=== PATIENT | female | born 2000 | race Caucasian/White ===

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

== ENCOUNTER → 2022-12-28 | Outpatient (CLI) | payer MEDICAID, SELFPAY ==
--- NOTE | 2022-12-28 15:18 | RAD_ITS ---
STUDY: X-RAY EXAMINATION: SCOLIOSIS SERIES REASON FOR EXAM: Female, 22 years old. Lumbar strain. Pain. TECHNIQUE: 6 view(s) of the thoracolumbar spine were obtained in the upright standing position. COMPARISON: None. FINDINGS: No thoracic scoliosis.. 12 degrees of dextroscoliosis of the upper lumbar spine measured at the T12-L2 interspace. Normal kyphosis of the thoracic spine. Normal thoracic vertebrae and endplates. Normal disc space heights of the thoracic spine. Normal lordosis of the lumbar spine. Normal lumbar vertebrae and endplates. Normal disc space heights of the lumbar spine. Normal soft tissues. RAD/Scoliosis 2 or 3 views IMPRESSION: Normal lumbar dextroscoliosis with no other abnormality. Electronically Signed: Jayjay Payne MD at 11:26 EDT ,
--- NOTE | 2022-12-28 15:30 | RAD_ITS ---
STUDY: X-RAY - LEFT KNEE REASON FOR EXAM: Female, 22 years old. Please drain. Pain. TECHNIQUE: 4 view(s) of the knee. COMPARISON: None. FINDINGS: Normal visualized distal femur. Normal visualized proximal tibia and fibula. Normal proximal tibiofibular articulation. Normal medial femorotibial compartment. Normal lateral femorotibial compartment. Slight lateral tilt and subluxation of the patella with mild arthrosis of the lateral patellofemoral compartment. Normal soft tissues. RAD/Knee 4 or More Views IMPRESSION: Mild arthrosis of the lateral patellofemoral compartment. No other abnormality. Electronically Signed: Jayjay Payne MD at 11:23 EDT ,
== END | disposition home or self-care (01) ==
LOC: RAD 15:12
PROVIDERS: PCP Pediatrics; Referring Provider Chiropractor; Visit Provider Chiropractor
DX: S33.5XXA Sprain of ligaments of lumbar spine, initial encounter (principal); S83.92XA Sprain of unspecified site of left knee, initial encounter
CPT/HCPCS: 72082; 73564

== ENCOUNTER → 2023-06-24 | Outpatient (CLI) | payer MEDICAID, SELFPAY ==
--- OUTSIDE RECORDS SUMMARY | 2023-06-24 07:33 | XMS RPT_ITS | CCD ---
Author Name Unknown Address [address] [place] [address] [address] [place] [address] Organization [facility] Care Team Providers Care Cash Office Worker Name Role Phone Karey BYRNE, Renard Babin Primary Care Provider Donny BYRNE, Anthony Nunes Primary Care Provider EMEKA ALICIA Attending Unavailable Allergies Allergy Classification Reported Allergen(s) Allergy Type Date of Onset Reaction(s) Facility (14 sources) Seasonal allergy; Translations: [SEASONAL ALLERGIES] Allergy to substance 5 Other: See Comments [facility] (14 sources) Animal Dander; Translations: [ANIMAL DANDER] Drug Allergy 5 Other: See Comments [facility] Medications Completed/Discontinued Medications Medication Drug Class(es) Dates Sig (Normalized) Sig (Original) folic acid 1 mg oral tablet (13 sources) Start: 03-04-2012 take 1 tablet by mouth once daily folic acid 1 mg tablet Indications: Unspecified epilepsy without mention of intractable epilepsy (HCC) Take 1 tablet by mouth once daily. 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, unspecified] Onset: 04-21-2005 04-21-2005 Chronic Other congenital anomalies (14 sources) Epidermal nevus syndrome; Translations: [Other specified congenital malformation syndromes, not elsewhere classified] Onset: 03-02-2014 03-02-2014 Chronic Past or Other Problems Problem Classification Problem Date Documented Da te Episodic/Chronic Conditions associated with dizziness or vertigo (8 sources) Vertigo; Translations: [Dizziness and giddiness] Onset: 08-23-2011 Episodic Other acquired deformities (8 sources) Leg length inequality; Translations: [Unequal limb length (acquired), unspecified site] Onset: 04-24-2010 04-24-2010 Episodic Other acquired deformities (8 sources) Acquired deformity of ankle AND/OR foot; Translations: [Unspecified acquired deformity of unspecified lower leg] Onset: 12-25-2014 01-17-2015 Episodic Other and unspecified benign neoplasm (8 sources) Benign tumor of head and neck; Translations: [Other benign neoplasm of skin of scalp and neck] Onset: 11-01-2003 11-01-2003 Episodic Other connective tissue disease (8 sources) Swelling of limb; Translations: [Other specified soft tissue disorders] Onset: 12-25-2014 12-25-2014 Episodic Results Test Name Value Interpretation Reference Range Facil ity Vital Signs Date Time Vital Sign Value Performing Clinician Faci lity 08-12-2022 17:52-0400 Diastolic blood pressure 76 mm[Hg] Emeka Older PERCHER.CAB SUPERVISOR Work Phone: [facility] 08-12-2022 17:52-0400 Systolic blood pressure 110 mm[Hg] Emeka Older PERCHER.CAB SUPERVISOR Work Phone: [facility] 08-12-2022 17:34-0400 Body height 151 cm Emeka Older PERCHER.CAB SUPERVISOR Work Phone: [facility] 08-12-2022 17:34-0400 Body weight 55.34 kg Emeka Older PERCHER.CAB SUPERVISOR Work Phone: [facility] 08-12-2022 17:34-0400 Heart rate 85 /min Emeka Older PERCHER.CAB SUPERVISOR Work Phone: [facility] 08-12-2022 17:34-0400 Respiratory rate 14 /min Emeka Older PERCHER.CAB SUPERVISOR Work Phone: [facility] Encounters Encounter Date Encounter Type Care Provider Facility Start: 03-30-2023 Refill Rene Baker MD Work Phone: Neurology Procedures Date Procedure Procedure Detail Performing Clinician Start: 12-15-2018 Adult depression screening assessment Rene Baker MD Work Phone: Plan of Treatment Date Care Activity Detail Author Start: 12-02-2023 Urine microalbumin profile [facility] Start: 08-13-2023 CHLAMYDIA SCREENING () CH LAMYDIA SCREENING () [facility] Immunizations Immunization Date Immunization Notes Care Provider Fa zacariasty 12-14-2017 meningococcal polysaccharide (groups A, C, Y and W-135) diphtheria toxoid conjugate vaccine (MCV4P) Rene Baker MD Work Phone: [facility] 09-24-2015 meningococcal polysaccharide (groups A, C, Y and W-135) diphtheria toxoid conjugate vaccine (MCV4P) Rene Baker MD Work Phone: [facility] 11-28-2014 influenza virus vacc ine, unspecified formulation Rene Baker MD Work Phone: [facility] 11-28-2014 influenza, seasonal, injectable, preservative free Emeka Older PERCHER.CAB SUPERVISOR Work Phone: [facility] 02-05-2014 influenza virus vacc ine, live, attenuated, for intranasal use Emeka Older PERCHER.CAB SUPERVISOR Work Phone: [facility] 02-05-2014 influenza, live, intranasal, quadrivalent Rene Baker MD Work Phone: [facility] 12-01-2013 tetanus toxoid, redu caridad diphtheria toxoid, and acellular pertussis vaccine, adsorbed Rene Baker MD Work Phone: [facility] 04-07-2013 influenza virus vacc ine, unspecified formulation Rene Baker MD Work Phone: [facility] 11-29-2006 diphtheria, tetanus toxoids and acellular pertussis vaccine Rene Baker MD Work Phone: [facility] 11-29-2006 diphtheria, tetanus toxoids and pertussis vaccine Emeka Older PERCHER.CAB SUPERVISOR Work Phone: [facility] 11-29-2006 measles, mumps and rubella virus vaccine Rene Baker MD Work Phone: [facility] 11-29-2006 measles, mumps, rube lla, and varicella virus vaccine Rene Baker MD Work Phone: [facility] 11-29-2006 poliovirus vaccine, inactivated Rene Baker MD Work Phone: [facility] 10-28-2006 varicella virus vaccine Rene Baker MD Work Phone: [facility] 01-04-2002 diphtheria, tetanus toxoids and acellular pertussis vaccine Rene Baker MD Work Phone: [facility] 01-04-2002 diphtheria, tetanus toxoids and acellular pertussis vaccine, unspecified formulation Emeka Older PERCHER.CAB SUPERVISOR Work Phone: [facility] 01-04-2002 haemophilus influenz ae type b vaccine, conjugate unspecified formulation Emeka Older PERCHER.CAB SUPERVISOR Work Phone: [facility] 01-04-2002 haemophilus influenz ae type b vaccine, HbOC conjugate Rene Baker MD Work Phone: [facility] 10-28-2001 measles, mumps and rubella virus vaccine Rene Baker MD Work Phone: [facility] 10-28-2001 varicella virus vaccine Emeka Older PERCHER.CAB SUPERVISOR Work Phone: [facility] 06-23-2001 diphtheria, tetanus toxoids and acellular pertussis vaccine Rene Baker MD Work Phone: [facility] 06-23-2001 diphtheria, tetanus toxoids and acellular pertussis vaccine, unspecified formulation Emeka Older PERCHER.CAB SUPERVISOR Work Phone: [facility] 06-23-2001 haemophilus influenz ae type b vaccine, conjugate unspecified formulation Emeka Older PERCHER.CAB SUPERVISOR Work Phone: [facility] 06-23-2001 haemophilus influenz ae type b vaccine, HbOC conjugate Rene Baker MD Work Phone: [facility] 04-14-2001 diphtheria, tetanus toxoids and acellular pertussis vaccine Rene Baker MD Work Phone: [facility] 04-14-2001 diphtheria, tetanus toxoids and acellular pertussis vaccine, unspecified formulation Emeka Older PERCHER.CAB SUPERVISOR Work Phone: [facility] 04-14-2001 haemophilus influenz ae type b conjugate and Hepatitis B vaccine Emeka Older PERCHER.CAB SUPERVISOR Work Phone: [facility] 04-14-2001 haemophilus influenz ae type b vaccine, HbOC conjugate Rene Baker MD Work Phone: [facility] 04-14-2001 hepatitis B vaccine, pediatric or pediatric/adolescent dosage Rene Baker MD Work Phone: [facility] 04-14-2001 poliovirus vaccine, inactivated Rene Baker MD Work Phone: [facility] 02-02-2001 diphtheria, tetanus toxoids and acellular pertussis vaccine Rene Baker MD Work Phone: [facility] 02-02-2001 diphtheria, tetanus toxoids and acellular pertussis vaccine, unspecified formulation Emeka Older PERCHER.CAB SUPERVISOR Work Phone: [facility] 02-02-2001 poliovirus vaccine, inactivated Rene Baker MD Work Phone: [facility] 01-23-2001 diphtheria, tetanus toxoids and acellular pertussis vaccine Rene Baker MD Work Phone: [facility] 01-23-2001 diphtheria, tetanus toxoids and pertussis vaccine Emeka Older PERCHER.CAB SUPERVISOR Work Phone: [facility] 01-23-2001 poliovirus vaccine, inactivated Rene Baker MD Work Phone: [facility] 2000 haemophilus influenz ae type b conjugate and Hepatitis B vaccine Emeka Older PERCHER.CAB SUPERVISOR Work Phone: [facility] 2000 haemophilus influenz ae type b vaccine, HbOC conjugate Rene Baker MD Work Phone: [facility] 2000 hepatitis B vaccine, pediatric or pediatric/adolescent dosage Rene Baker MD Work Phone: [facility] 2000 poliovirus vaccine, inactivated Rene Baker MD Work Phone: [facility] 2000 hepatitis B vaccine, pediatric or pediatric/adolescent dosage Rene Baker MD Work Phone: [facility] Payers Date Payer Category Payer Medicaid [id number] 2020 Medicaid [facility] MEDICAID [facility] MEDICAID [id number] 2020-Present [phone] [address] [place] [address] Medicaid [id number] 2020 Medicaid [id number] Social History Date Type Detail Facility Start: 04-05-2018 End: 08-12-2022 Tobacco smoking status NHIS Never smoked tobacco [facility] Start: 03-19-2021 Alcohol intake Not Asked Ingrid alanis [facility] Start: 2000 Sex Assigned At Not on file C [facility] Start: 04-05-2018 End: 08-12-2022 Tobacco use and exposure Smokeless tobacco non-user [facility] Start: 08-12-2022 Alcohol intake Lifetime non-d diana (finding) [facility] Start: 08-12-2022 End: 12-15-2022 History of Social function [facility] Work Phone: Start: 08-12-2022 End: 12-15-2022 Tobacco use panel [facility] Work Phone: Adult Depression Screening Assessment 0 [facility] Work Phone: Clinical Notes 07-07-2007 to 03-30-2023 Telephone Encounter - Lucita Siu RN - 03/30/2023 11:57 AM ESTAddendum Note - Brianda Kimble - 03/30/2023 11:51 AM ESTTelephone Encounter - Brianda Kimble - 03/30/2023 11:49 AM EST Note Date & Type Note Facility 03-30-2023 Miscellaneous Notes Date of service: March 30, 2023 Lexus Flores is a 22 year old. Last seen by Dr. Baker on 11/19/20. Has upcoming appt with local adult neurologist on 06/22/23. Spoke with Ms. Flores who states that Lexus has an appt with local neurologist on 06/22/23 and that date is the soonest she could be seen. Advised that one 90-day fill can be given to bridge until appt. She verbalized understanding. Now requesting oxcarbazepine refill Level of oxcarbazepine on 11/28/20 was 20.1 -Prescription appropriate, please file and document electronically. Thank you. -Routed to Dr. Maribell Siu RN Addended by: BRIANDA KIMBLE on: 03/30/2023 11:51 AM Modules accepted: Orders Prescription Refill: Requested by: pharmacy Please E-Scribe Caller Contact Number: [facility] Number: [phone] Generic/ brand: 30 or 90 day supply requested: 90 Last appointment: 11/19/20 Next Appointment: none; sent to schedulers Patient of Dr. Baker documented in this encounter [facility] 01-28-2023 Miscellaneous Notes Bernice mother called back informed that pt will be transferring to [place] neurology and wont be making an appointment here. Refill for OXC done on 01/01/23. Called Lexus and Mrs. Flores to advise of need for appt, did not receive answer on either line, messages left, will await call-back. Refill refused. Lucita Siu RN Prescription Refill: Requested by: pharmacy Please E-Scribe Caller Contact Number: [facility] Number: [phone] Generic/ brand: Generic 30 or 90 day supply requested: 90 Last appointment: 11/19/20 Next Appointment: none Patient of Dr. Baker documented in this encounter [facility] 12-28-2022 Miscellaneous Notes Noted Lexus has not been seen since 11/2020. Called Mrs. Flores to advises of a need for a clinic visit with Dr. Baker. Did not receive an answer. Will await call-back. -Prescription appropriate. Please file, document electronically, and CLOSE encounter. Thank you. -Routed to Dr. Baker. Nadeem Artis RN Prescription Refill: Requested by: pharmacy Please E-Scribe Caller Contact Number: [phone] (home) [facility] Number: [phone] Generic/ brand: generic 30 or 90 day supply requested: 90 Last appointment: 11/19/20 Next Appointment: Patient was ns for 12/15/[address] baker documented in this encounter [facility] 10-21-2022 Miscellaneous Notes Date of service: October 21, 2022 Lexus Flores is a 22 year old. Last seen by Dr. Baker on 11/19/2020 pt has an upcoming appt on 12/15/2022 Now requesting oxcarbazepine refill Level of oxcarbazepine on 11/28/2020 was 20.1 -Prescription appropriate, please file and document electronically. Thank you. -Routed to Dr. Maribell Baugh LPN Prescription Refill: Requested by: pharmacy Please E-Scribe Caller Contact Number: [phone] (home) [facility] Number: [phone] Generic/ brand: generic 30 or 90 day supply requested: 90 Last appointment: 11/19/20 Next Appointment: 12/15/[address] baker documented in this encounter [facility] 08-12-2022 Note HNO ID: [id number] Author: Emeka Alicia APRN.CAB SUPERVISOR Service: ? Author Type: Nurse Practitioner Type: Progress Notes Filed: 08/12/2022 6:44 PM Note Text: CC: Patient presents with: Establish Care HPI Lexus Flores is a 21 year old female who presents today for above. Transitioning from pediatrics. History of seizures/epidermal nevus syndrome. Taking Trileptal as prescribed. Denies any recent seizure activity. Neurology Dr. Baker with [facility]. Exercise: denies regular aerobic exercise. Very active at work 3 times a week, sedentary at home Diet: Watches diet for salt (salty snacks, added salt, processed frozen/canned foods), sugary/sweet snacks, unhealthy fats: not typically. Trying to eat vegetables and fruit daily. Snacks a lot, typically not healthy REVIEW OF SYSTEMS GENERAL: Negative for malaise, significant weight loss and fever HEENT: Negative for frequent or significant headaches, significant change in vision, significant vision problems, significant ear problems or hearing loss RESPIRATORY: Negative for cough, wheezing and shortness of breath CARDIOVASCULAR: Negative for chest pain, leg swelling and palpitations GI: Negative for abdominal discomfort, blood in stools or black stools, change in bowel habit, heart burn, nausea, vomiting : Negative for dysuria, frequency, incontinence, and nocturia >1 MUSCULOSKELETAL: Negative for joint pain or swelling, back pain, and muscle pain. PSYCH: Negative for sleep disturbance, mood disorder and recent psychosocial stressors. PAST MEDICAL HISTORY Diagnosis Date Leg length discrepancy Seizure (HCC) epidurmal nevus PAST SURGICAL HISTORY Procedure Laterality Date PAST SURGICAL HISTORY OF 2008 Resection of left temporoparietooccipital area PAST SURGICAL HISTORY OF 04/2013 HEMIEPIPHYSEAL ARREST TIBIA - left ALLERGIES Animal Dander and Seasonal Allergies MEDICATIONS OXcarbazepine (TRILEPTAL) 300 mg tablet 1 and and half tablets two times a day. folic acid 1 mg tablet Take 1 tablet by mouth once daily. FAMILY HISTORY Problem Relation Age of Onset Hypertension Maternal Grandmother Social History Tobacco Use Smoking status: Never Smokeless tobacco: Never PHYSICAL EXAM BP 130/77 Pulse 85 Resp 14 Ht 151 cm (4' 11.45 ) Wt 55.3 kg (122 lb) LMP 11/24/2018 BMI 24.27 kg/m? General Appearance: well appearing, in no acute distress, alert Pysch: mood and affect broad and appropriate Skin: Skin color, texture, turgor normal for age; Eyes: conjunctiva pink and moist, no icterus, sclera white, non-injected Neck: Thyroid normal size and symmetric without palpable nodules, Neck supple, No adenopathy Lymph nodes: No supraclavicular lymphadenopathy Lungs: Lungs clear to auscultation. No wheezing, rhonchi, rales. Heart: RRR without murmur, gallop, or rubs. No ectopy Health maintenance reviewed with patient: MENINGOCOCCAL B: Consider based on risk(2 of 2 - Risk Bexsero 2-dose series) due on 2016 GC (GONORRHEA) SCREENING (18-24) Never done HEPATITIS C SCREENING Never done HIV SCREENING Never done CHLAMYDIA SCREENING (18-24) Never done PAP TESTING Never done DEPRESSION ASSESSMENT Never done HPV VACCINE(1 - 2-dose series) due on 08/13/2023 COVID-19 VACCINE(1) due on 08/13/2023 INFLUENZA(Season Ended) due on 12/18/2022 DTAP,TDAP,TD(7 - Td or Tdap) due on 12/02/2023 HEPATITIS B Addressed ASSESSMENT/PLAN: 1. Wellness examination - ICD9: V70.0, ICD10: Z00.00 (primary diagnosis) - Counseled on healthy diet and regular exercise - Calcium intake with supplements or by diet of 1000 mg/day for under 50, 4930-4690 mg/day for 50+ - Patient was counseled [id number] by myself (the billing provider) for the following immunizations and vaccine components, including side effects: COVID-19 and meningitis Patient declined all vaccines - Follow up for annual exam in one year 2. 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 Partial epilepsy with intractable epilepsy (HCC) - ICD9: 345.51, ICD10: G40.119 Per neurology Prescription instructions reviewed with patient as applicable. Potential red flag symptoms discussed with the patient. Reviewed appropriate action plan to take if red flag symptoms occur. Patient agreeable to treatment plan. Emeka Aliica, PERCHER.CAB SUPERVISOR [facility] 08-12-2022 History of Present illness Narrative CC: Patient presents with: Establish Care HPI Lexus Flores is a 21 year old female who presents today for above. Transitioning from pediatrics. History of seizures/epidermal nevus syndrome. Taking Trileptal as prescribed. Denies any recent seizure activity. Neurology Dr. Baker with [facility]. Exercise: denies regular aerobic exercise. Very active at work 3 times a week, sedentary at home Diet: Watches diet for salt (salty snacks, added salt, processed frozen/canned foods), sugary/sweet snacks, unhealthy fats: not typically. Trying to eat vegetables and fruit daily. Snacks a lot, typically not healthy REVIEW OF SYSTEMS GENERAL: Negative for malaise, significant weight loss and fever HEENT: Negative for frequent or significant headaches, significant change in vision, significant vision problems, significant ear problems or hearing loss RESPIRATORY: Negative for cough, wheezing and shortness of breath CARDIOVASCULAR: Negative for chest pain, leg swelling and palpitations GI: Negative for abdominal discomfort, blood in stools or black stools, change in bowel habit, heart burn, nausea, vomiting : Negative for dysuria, frequency, incontinence, and nocturia >1 MUSCULOSKELETAL: Negative for joint pain or swelling, back pain, and muscle pain. PSYCH: Negative for sleep disturbance, mood disorder and recent psychosocial stressors. PAST MEDICAL HISTORY Diagnosis Date Leg length discrepancy Seizure (HCC) epidurmal nevus PAST SURGICAL HISTORY Procedure Laterality Date PAST SURGICAL HISTORY OF 2008 Resection of left temporoparietooccipital area PAST SURGICAL HISTORY OF 04/2013 HEMIEPIPHYSEAL ARREST TIBIA - left ALLERGIES Animal Dander and Seasonal Allergies MEDICATIONS OXcarbazepine (TRILEPTAL) 300 mg tablet 1 and and half tablets two times a day. folic acid 1 mg tablet Take 1 tablet by mouth once daily. FAMILY HISTORY Problem Relation Age of Onset Hypertension Maternal Grandmother Social History Tobacco Use Smoking status: Never Smokeless tobacco: Never PHYSICAL EXAM BP 130/77 Pulse 85 Resp 14 Ht 151 cm (4' 11.45 ) Wt 55.3 kg (122 lb) LMP 11/24/2018 BMI 24.27 kg/m General Appearance: well appearing, in no acute distress, alert Pysch: mood and affect broad and appropriate Skin: Skin color, texture, turgor normal for age; Eyes: conjunctiva pink and moist, no icterus, sclera white, non-injected Neck: Thyroid normal size and symmetric without palpable nodules, Neck supple, No adenopathy Lymph nodes: No supraclavicular lymphadenopathy Lungs: Lungs clear to auscultation. No wheezing, rhonchi, rales. Heart: RRR without murmur, gallop, or rubs. No ectopy Health maintenance reviewed with patient: MENINGOCOCCAL B: Consider based on risk(2 of 2 - Risk Bexsero 2-dose series) due on 2016 GC (GONORRHEA) SCREENING (18-24) Never done HEPATITIS C SCREENING Never done HIV SCREENING Never done CHLAMYDIA SCREENING (18-24) Never done PAP TESTING Never done DEPRESSION ASSESSMENT Never done HPV VACCINE(1 - 2-dose series) due on 08/13/2023 COVID-19 VACCINE(1) due on 08/13/2023 INFLUENZA(Season Ended) due on 12/18/2022 DTAP,TDAP,TD(7 - Td or Tdap) due on 12/02/2023 HEPATITIS B Addressed ASSESSMENT/PLAN: 1. Wellness examination - ICD9: V70.0, ICD10: Z00.00 (primary diagnosis) - Counseled on healthy diet and regular exercise - Calcium intake with supplements or by diet of 1000 mg/day for under 50, 8498-0821 mg/day for 50+ - Patient was counseled [id number] by myself (the billing provider) for the following immunizations and vaccine components, including side effects: COVID-19 and meningitis Patient declined all vaccines - Follow up for annual exam in one year 2. 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 Partial epilepsy with intractable epilepsy (HCC) - ICD9: 345.51, ICD10: G40.119 Per neurology Prescription instructions reviewed with patient as applicable. Potential red flag symptoms discussed with the patient. Reviewed appropriate action plan to take if red flag symptoms occur. Patient agreeable to treatment plan. Emeka Alicia APRN.CNP documented in this encounter [facility] 07-20-2022 Miscellaneous Notes Date of service: July 20, 2022 Lexus Flores is a 21 year old. Last seen by Dr. Baker on 11/2020. Has upcoming appt 12/15/22 Now requesting oxcarbazepine refill Level of oxcarbazepine on 11/28/20 was 20 -Prescription appropriate, please file and document electronically. Thank you. -Routed to Dr. Maribell Siu RN Called Mrs. Flores, did not receive answer, message left. Will await call back. Lucita Siu RN Prescription Refill: Requested by: pharmacy Please E-Scribe Caller Contact Number: [phone] (home) [facility] Number: [phone] Generic/ brand: generic 30 or 90 day supply requested: 90 Last appointment: 11/19/20 Next Appointment: none Patient of Dr. baker documented in this encounter [facility] 04-01-2022 Miscellaneous Notes Mom returned call; will await call back Patient's request for medication is as follows: Requested Prescriptions Pending Prescriptions Disp Refills OXcarbazepine (TRILEPTAL) 300 mg tablet 270 tablet 0 Si and and half tablets two times a day. Prescription(s) as above. Please process accordingly. Rene Baker MD Date of service: April 01, 2022 Lexus Flores is a 21 year old. Last seen by Dr. Baker on 11/19/20. Re[employer] message sent requesting family to schedule follow-up. Called Ms. Flores to advise of need to schedule follow-up appt, did not receive answer. Message left, will await call-back. Now requesting oxcarbazepine refill Level of oxcarbazepine on 11/28/20 was 20.1 -Prescription appropriate, please file and document electronically. Thank you. -Routed to Dr. Maribell Siu RN Prescription Refill: Requested by: pharmacy Please Fax Caller Contact Number: [phone] (home) Pharmacy Name: [facility] Number: [phone] Generic/ brand: generic 30 or 90 day supply requested: 90 Last appointment: 11/19/20 Next Appointment: none Patient of Dr. baker documented in this encounter [facility] 01-06-2022 Miscellaneous Notes Oxcarbazepine refill done on 01/01/22, refill refused. Lucita Siu RN Prescription Refill: Requested by: pharmacy Please E-Scribe Caller Contact Number: Pharmacy Name: [facility] Number: [phone] Generic/ brand: 30 or 90 day supply requested: 90 Last appointment: 11/19/20 Next Appointment: needs apt Patient of Dr. Baker documented in this encounter [facility] 01-01-2022 Miscellaneous Notes Spoke with patient's mother. Given message from provider's office. Patient's mother verbalizes understanding. Mother will call NEUROLOGY to schedule. Carlene Garcia RN message left for parent to call office Aryan Cummings RN Please help the patient with the requested referral. It has been placed into the computer. This note was partially generated using [employer] voice recognition system, and there may be some incorrect words, spellings, and punctuation that were not noted in checking the note before saving. Renard Eden MD Patient's mother calling, attempting to transition to adult neurology, is unable to schedule an appointment without a consult/referral entered. Ok to order consult? Has appt to establish with IM but is not until 05/2022. Please advise Aryan Cummings RN documented in this encounter [facility] 01-01-2022 Miscellaneous Notes The following approved medication requests have been transmitted electronically. Requested Prescriptions Pending Prescriptions Disp Refills OXcarbazepine (TRILEPTAL) 300 mg tablet 270 tablet 0 Si and and half tablets two times a day. Alexa Morel MD Date of service: January 01, 2022 Lexus Flores is a 21 year old. Last seen in office visit with Dr. Baker on 11/2020 Now requesting oxcarbazepine refill -Prescription appropriate, please file and document electronically. Thank you. -Routed to Dr. Maria Teresa Siu RN Prescription Refill: Requested by: parent Please E-Scribe Caller Contact Number: Casi [phone] Pharm[facility] Name: [facility] Pharmacy Number: [phone] Generic/ brand: generic 30 or 90 day supply requested: 90 Last appointment: 11/19/20 Next Appointment: Mrs. Flores is trying to establish care with neurologist in [facility]. Patient of Dr. Baker documented in this encounter [facility] 01-01-2022 Miscellaneous Notes Spoke with Mrs. Flores who will obtain referral for new neurologist from PCP. Lucita Siu RN General call : Full name of person calling: Ellen Flores Relationship to patient: mother Phone # : [phone] Reason for call: Mrs. Flores requests a referral to [facility]. Even though they are related, in order to transfer care to adults, [place] is requiring a referral. Please send it to Derick Saleem MD phone [phone]. Mrs. Flores did not have the fax. Please send pertinent records. Patient of Dr. Baker documented in this encounter [facility] 10-06-2021 Miscellaneous Notes Patient's request for medication is as follows: Pending Prescriptions Disp Refills OXCARBAZEPINE 300 MG TABLET 270 tablet 0 Si and and half tablets two times a day. MADYSON: No Prescription(s) as above. Please process accordingly. Rene Baker MD Date of service: October 06, 2021 Lexus Flores is a 21 year old. Last seen in office visit with Dr. Baker on 11/2020 Now requesting oxcarbazepine refill -Prescription appropriate, please file and document electronically. Thank you. -Routed to Dr. Maribell Siu RN Prescription Refill: Requested by: pharmacy Please E-Scribe Caller Contact Number: Pharmacy Number and Name: [phone] [id number] 30 or 90 day supply requested: 90 Last appointment: 11/19/20 Next Appointment: none Patient of Dr. Baker documented in this encounter [facility] 07-10-2021 Miscellaneous Notes The following approved medication requests have been transmitted electronically. Pending Prescriptions: Disp Refills OXcarbazepine (TRILEPTAL) 300 mg tablet 270 tablet0 Si and and half tablets two times a day. MADYSON: No Alexa Morel MD Date of service: July 10, 2021 Lexus Flores is a 20 year old. Last seen by Dr. Baker on 11/2020 Now requesting oxcarbazepine refill -Prescription appropriate, please file and document electronically. Thank you. -Routed to Dr. Maribell Siu RN Prescription Refill: Requested by: parent Please E-Scribe Caller Contact Number: [facility] Name: [facility] Number: [phone] Generic/ brand: 30 or 90 day supply requested: 90 Last appointment: 11.19.2020 Next Appointment: None Patient of Dr. Baker documented in this encounter [facility] documented as of this encounter (statuses as of 08/13/2022) [facility] History of Past illness Narrative* Problem Noted Date Resolved Date Swelling of limb 12/25/2014 08/12/2022 Vertigo 08/23/2011 08/12/2022 Epilepsy 07/07/2007 04/05/2018 Benign neoplasm of scalp and skin of neck 200308/12/2022 documented as of this encounter (statuses as of 10/22/2022) [facility] History of Past illness Narrative* Problem Noted Date Diagnosed Date Resolved Date Swelling of limb 12/25/2014 08/12/2022 Vertigo 08/23/2011 08/12/2022 Epilepsy 07/07/2007 04/05/2018 Benign neoplasm of scalp and skin of neck 11/01/2003 08/12/2022 documented as of this encounter (statuses as of 01/01/2023) [facility] History of Past illness Narrative* Problem Noted Date Diagnosed Date Resolved Date Swelling of limb 12/25/2014 08/12/2022 Vertigo 08/23/2011 08/12/2022 Epilepsy 07/07/2007 04/05/2018 Benign neoplasm of scalp and skin of neck 11/01/2003 08/12/2022 documented as of this encounter (statuses as of 01/28/2023) [facility] History of Past illness Narrative* Problem Noted Date Diagnosed Date Resolved Date Swelling of limb 12/25/2014 08/12/2022 Vertigo 08/23/2011 08/12/2022 Epilepsy 07/07/2007 04/05/2018 Benign neoplasm of scalp and skin of neck 11/01/2003 08/12/2022 documented as of this encounter (statuses as of 03/30/2023) [facility] History of Past illness Narrative* Problem Noted Date Resolved Date Epilepsy 07/07/2007 04/05/2018 documented as of this encounter (statuses as of 07/11/2021) [facility] History of Past illness Narrative* Problem Noted Date Resolved Date Epilepsy 07/07/2007 04/05/2018 documented as of this encounter (statuses as of 10/06/2021) [address]20-2008 History of Past illness Narrative* Problem Noted Date Resolved Date Epilepsy 07/07/2007 04/05/2018 documented as of this encounter (statuses as of 01/01/2022) [facility] History of Past illness Narrative* Problem Noted Date Resolved Date Epilepsy 07/07/2007 04/05/2018 documented as of this encounter (statuses as of 01/01/2022) [facility] History of Past illness Narrative* Problem Noted Date Resolved Date Epilepsy 07/07/2007 04/05/2018 documented as of this encounter (statuses as of 01/01/2022) [facility] History of Past illness Narrative* Problem Noted Date Resolved Date Epilepsy 07/07/2007 04/05/2018 documented as of this encounter (statuses as of 01/06/2022) [facility] History of Past illness Narrative* Problem Noted Date Resolved Date Epilepsy 07/07/2007 04/05/2018 documented as of this encounter (statuses as of 04/01/2022) [facility] of Past illness Narrative* Problem Noted Date Resolved Date Epilepsy 07/07/2007 04/05/2018 documented as of this encounter (statuses as of 07/21/2022) [facility] Partial epilepsy with intractable epilepsy (HCC) Localization-related (focal) (partial) epilepsy and epileptic syndromes with simple partial seizures, with intractable epilepsy [facility] Partial epilepsy with intractable epilepsy (HCC) Localization-related (focal) (partial) epilepsy and epileptic syndromes with simple partial seizures, with intractable epilepsy [facility] Partial epilepsy with intractable epilepsy (HCC)- Primary Localization-related (focal) (partial) epilepsy and epileptic syndromes with simple partial seizures, with intractable epilepsy [facility] Diagnosis Partial epilepsy with intractable epilepsy (HCC) Localization-related (focal) (partial) epilepsy and epileptic syndromes with simple partial seizures, with intractable epilepsy [facility] Diagnosis 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, 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) Localization-related (focal) (partial) epilepsy and epileptic syndromes with simple partial seizures, with intractable epilepsy [facility] Diagnosis Partial epilepsy with intractable epilepsy (HCC) Localization-related (focal) (partial) epilepsy and epileptic syndromes with simple partial seizures, with intractable epilepsy [facility] Diagnosis Partial epilepsy with intractable epilepsy (HCC) Localization-related (focal) (partial) epilepsy and epileptic syndromes with simple partial seizures, with intractable epilepsy documented in this encounter [facility] note* Diagnosis Partial epilepsy with intractable epilepsy (HCC) Localization-related (focal) (partial) epilepsy and epileptic syndromes with simple partial seizures, with intractable epilepsy [facility] Diagnosis Partial epilepsy with intractable epilepsy (HCC) Localization-related (focal) (partial) epilepsy and epileptic syndromes with simple partial seizures, with intractable epilepsy documented in this encounter [facility] Advance Directives Documents on File Type Date Recorded Patient Follow Up Clerk Expl anation Advance Directive(s) Latest Code Status on File Code Status Date Activated Date Inactivated Comments 07/25/2004 2:21 PM 07/25/2004 2:21 PM Latest Code Status on File Code Status Date Activated Date Inactivated Comments 07/25/2004 2:21 PM 07/25/2004 2:21 PM Latest Code Status on File Code Status Date Activated Date Inactivated Comments None 07/25/2004 2:21 PM 07/25/2004 2:21 PM Reason for Referral Specialty Diagnoses / Procedures Referred By Ruy fleming Referred To Contact Neurology Diagnoses Partial epilepsy with intractable epilepsy (HCC) Procedures CONSULT TO NEUROLOGY OFFICE/OUTPATIENT [facility] 60-74 MINUTES Renard Eden MD [address] [place] [address] Referral ID Status Reason Start Date Expiration Date Visits Requested Visits Authorized [id number] Authorized PCP Requested Referral 01/01/2022 01/01/2023 1 1 Summary Purpose Family History No Family History Records Found Additional Source Comments Source Comments (unrecognize d section and content) In the event this informatio n is protected by the Federal Confidentiality of Alcohol and Drug Abuse Patient Records regulations: The Federal rules restrict any use of the information to criminally investigate or prosecute any alcohol or drug abuse patient.[facility] the event this information is protected by the Federal Confidentiality of Alcohol and Drug Abuse Patient Records regulations: The Federal rules restrict any use of the information to criminally investigate or prosecute any alcohol or drug abuse patient.[facility] the event this information is protected by the Federal Confidentiality of Alcohol and Drug Abuse Patient Records regulations: The Federal rules restrict any use of the information to criminally investigate or prosecute any alcohol or drug abuse patient.[facility] the event this information is protected by the Federal Confidentiality of Alcohol and Drug Abuse Patient Records regulations: The Federal rules restrict any use of the information to criminally investigate or prosecute any alcohol or drug abuse patient.[facility] the event this information is protected by the Federal Confidentiality of Alcohol and Drug Abuse Patient Records regulations: The Federal rules restrict any use of the information to criminally investigate or prosecute any alcohol or drug abuse patient.[facility] the event this information is protected by the Federal Confidentiality of Alcohol and Drug Abuse Patient Records regulations: The Federal rules restrict any use of the information to criminally investigate or prosecute any alcohol or drug abuse patient.[facility] the event this information is protected by the Federal Confidentiality of Alcohol and Drug Abuse Patient Records regulations: The Federal rules restrict any use of the information to criminally investigate or prosecute any alcohol or drug abuse patient.[facility] the event this information is protected by the Federal Confidentiality of Alcohol and Drug Abuse Patient Records regulations: The Federal rules restrict any use of the information to criminally investigate or prosecute any alcohol or drug abuse patient.[facility] the event this information is protected by the Federal Confidentiality of Alcohol and Drug Abuse Patient Records regulations: The Federal rules restrict any use of the information to criminally investigate or prosecute any alcohol or drug abuse patient.[facility] the event this information is protected by the Federal Confidentiality of Alcohol and Drug Abuse Patient Records regulations: The Federal rules restrict any use of the information to criminally investigate or prosecute any alcohol or drug abuse patient.[facility] the event this information is protected by the Federal Confidentiality of Alcohol and Drug Abuse Patient Records regulations: The Federal rules restrict any use of the information to criminally investigate or prosecute any alcohol or drug abuse patient.[facility] the event this information is protected by the Federal Confidentiality of Alcohol and Drug Abuse Patient Records regulations: The Federal rules restrict any use of the information to criminally investigate or prosecute any alcohol or drug abuse patient.[facility] Center[facility] the event this information is protected by the Federal Confidentiality of Alcohol and Drug Abuse Patient Records regulations: The Federal rules restrict any use of the information to criminally investigate or prosecute any alcohol or drug abuse patient.[facility] Reason for Visit (unrecogniz ed section and content) Reason Onset Date Comments Refill Request 10/06/2021 Reason Comments Other Referral to [place] neurologist Reason Onset Date Comments Refill Request 12/31/2021 Reason Comments Neurology Reason Onset Date Comments Refill Request 01/06/2022 Reason Onset Date Comments Refill Request 03/30/2022 Reason Onset Date Comments Refill Request 06/29/2022 Reason Comments Establish Care Reason Onset Date Comments Refill Request 10/21/2022 Reason Onset Date Comments Refill Request 12/28/2022 Reason Onset Date Comments Refill Request 01/20/2023 Refill Request 01/28/2023 Reason Onset Date Comments Refill Request 03/30/2023 Care Teams (unrecognized sec tion and content) 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 Specialty Start Date End Date Renard Eden MD [facility] [place], [place] [id number] PCP - General Pediatrics 12/15/18 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 Specialty Start Date End Date Renard Eden MD [address] [place], [place] [id number] PCP - General Pediatrics 12/15/18 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 Specialty Start Date End Date Renard Eden MD [facility] [place], [place] [id number] PCP - General Pediatrics 12/15/18 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 Specialty Start Date End Date Renard Eden MD [facility] [place], [place] [id number] PCP - General Pediatrics 12/15/18 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 Specialty Start Date End Date Anthony Hines MD [address] [place], [place] [id number] PCP - General Internal Medicine 08/12/22 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 Specialty Start Date End Date Anthony Hines MD [address] [place], [place] [id number] PCP - General Internal Medicine 08/12/22 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 Specialty Start Date End Date Anthony Hines MD [address] [place], [place] [id number] PCP - General Internal Medicine 08/12/22 INFORMATION SOURCE (unrecogn ized section and content) FOR RECORDS PERTAINING TO PATIENTS WHO ARE OR HAVE BEEN ENROLLED IN A CHEMICAL DEPENDENCY/SUBSTANCEABUSE PROGRAM, SOME INFORMATION MAY BE OMITTED. This clinical summary was aggregated from multiple sources. Caution should be exercised in using it in the provision of clinical care. This summary normalizes information from multiple sources, and as a consequence, information in this document may materially change the coding, format and clinical context of patient data. In addition, data may be omitted in some cases. CLINICAL DECISIONS SHOULD BE BASED ON THE PRIMARY CLINICAL RECORDS. [facility] [employer] [facility]. provides no warranty or guarantee of the accuracy or completeness of information in this document.
[2023-06-24 10:07] LABS: Hematocrit 28.9 % (37-47); Hemoglobin 8.1 g/dL (12.0-15.0); Mean Corpuscular Hgb 20.1 pg (27.0-32.0); Mean Corpuscular Volume 71.7 fL (81-99); Mean Platelet Vol. 8.6 fl (6.2-12.0); Platelet Count 326 K/mm3 (150-450); RBC Distribution Width CV 17.3 % (11.6-14.6); RBC Distribution Width SD 45.1 fl (35.1-43.9); Red Blood Count 4.03 M/mm3 (4.2-5.4); White Blood Count 3.7 K/mm3 (4.4-11.0)
[2023-06-24 10:55] LABS: Vitamin B12 336 pg/mL (211-911)
[2023-06-24 12:47] LABS: ALB/GLOB Ratio 1.1 RATIO (0.9-2.4); AST(SGOT) 12 U/L (15-37); Alanine Aminotransfer ALT/SGPT 11 U/L (13-56); Albumin, Serum 3.6 g/dL (3.2-5.0); Alkaline Phosphatase 51 U/L (45-117); Anion Gap 9 (5-15); BUN 9 mg/dL (7-18); Calcium,Total 8.7 mg/dL (8.5-10.1); Chloride 107 mmol/L (98-107); EST Glomerular Filtration Rate 132 mL/min (>60); Est Glom Filt Rate - Afr Amer 160 mL/min (>60); Globulin 3.4 g/dL (2.2-4.2); Glucose 92 mg/dL (74-106); Magnesium 2.2 mg/dL (1.6-2.6); Potassium 3.9 mmol/L (3.5-5.1); Sodium Level 140 mmol/L (136-145); Thyroid Stim Hormone (TSH) 1.11 uIU/mL (0.358-3.74)
[2023-06-30 00:06] LABS: Trileptal-Oxcarbazepine 17 ug/mL (10-35)
== END | disposition home or self-care (01) ==
LOC: MTLAB 07:30
PROVIDERS: PCP Pediatrics; Referring Provider Psychiatry & Neurology Neurology; Visit Provider Psychiatry & Neurology Neurology
DX: G40.909 Epilepsy, unspecified, not intractable, without status epilepticus (principal)
CPT/HCPCS: 36415; 80053; 82542; 82607; 82746; 83735; 84425; 84443; 85027

== ENCOUNTER → 2023-07-01 | Outpatient (CLI) | payer MEDICAID, SELFPAY ==
--- NOTE | 2023-07-01 07:26 | MRI_ITS ---
EXAM: MR HEAD WITHOUT AND WITH INTRAVENOUS CONTRAST CLINICAL INDICATION: epilepsy; hx of epilepsy surgery at age 7 years TECHNIQUE: Multiplanar and multisequence MR images of the brain were obtained without and with intravenous contrast. CONTRAST: IV 11cc Clariscan COMPARISON: No relevant prior studies available. FINDINGS: BRAIN AND EXTRA-AXIAL SPACES: Cystic encephalomalacic changes of the left temporal, occipital and parietal lobes noted. Left lateral ventricle is slightly larger in size than the right lateral ventricle related to the volume loss change of the left cerebral hemisphere. No intra- or extra-axial hemorrhage. No evidence of acute infarct. No mass effect. There is preservation of the walters/white matter interface. Posterior fossa structures are unremarkable. Basal cisterns are patent. No abnormal contrast enhancement. SELLA: Normal. Normal sella turcica, pituitary gland, infundibular stalk, optic chiasm and hypothalamus. AUDITORY SYSTEM: Normal. The internal auditory canals are patent. BONES/JOINTS: Intact calvarium. SINUSES: Unremarkable as visualized. Clear. MASTOID AIR CELLS: Unremarkable as visualized. Clear. ORBITS: Unremarkable as visualized. Both globes, extraocular muscles, optic nerves and retrobulbar fat appear unremarkable. VASCULATURE: Unremarkable as visualized. Normal flow voids in the major intracranial circulation. MRI/Brain W/WO Contrast IMPRESSION: No acute intracranial abnormality. Cystic encephalomalacic changes of the left temporal, occipital and parietal lobes. Recommend comparison with old studies. Electronically Signed: Balbir He MD at 15:38 EDT ,
--- OUTSIDE RECORDS SUMMARY | 2023-07-01 07:32 | XMS RPT_ITS | CCD ---
Author Name Unknown Address [facility] [address] [place] [address] Organization [facility] Care Team Providers Care Barrel Rifler Name Role Phone Karey BYRNE, Renard Babin Primary Care Provider Donny BYRNE, Anthony Nunes Primary Care Provider EMEKA ALICIA Attending Unavailable Allergies Allergy Classification Reported Allergen(s) Allergy Type Date of Onset Reaction(s) Facility (14 sources) Seasonal allergy; Translations: [SEASONAL ALLERGIES] Allergy to substance 5 Other: See Comments [facility] (14 sources) Animal Dander; Translations: [ANIMAL DANDER] Drug Allergy 5 Other: See Comments [facility] Medications Completed/Discontinued Medications Medication Drug Class(es) Dates [...] Diastolic blood pressure 76 mm[Hg] Emeka Older RUBBER OFF.REGISTERED TRAVEL NURSE Work Phone: [facility] 08-12-2022 17:52-0400 Systolic blood pressure 110 mm[Hg] Emeka Older RUBBER OFF.REGISTERED TRAVEL NURSE Work Phone: [facility] 08-12-2022 17:34-0400 Body height 151 cm Emeka Older RUBBER OFF.REGISTERED TRAVEL NURSE Work Phone: [facility] 08-12-2022 17:34-0400 Body weight 55.34 kg Emeka Older RUBBER OFF.REGISTERED TRAVEL NURSE Work Phone: [facility] 08-12-2022 17:34-0400 Heart rate 85 /min Emeka Older RUBBER OFF.REGISTERED TRAVEL NURSE Work Phone: [facility] 08-12-2022 17:34-0400 Respiratory rate 14 /min Emeka Older RUBBER OFF.REGISTERED TRAVEL NURSE Work Phone: [facility] Encounters Encounter Date Encounter Type Care Provider Facility Start: 03-30-2023 Refill Rene Baker MD Work Phone: Neurology Procedures Date Procedure Procedure Detail Performing Clinician Start: 12-15-2018 Adult depression screening assessment Rene Baker MD Work Phone: Plan of Treatment Date Care Activity Detail Author Start: 12-02-2023 Urine microalbumin profile [facility] Start: 08-13-2023 CHLAMYDIA SCREENING () CH LAMYDIA SCREENING () [facility] Immunizations Immunization Date Immunization Notes Care Provider Fa zacariasty 12-14-2017 meningococcal polysaccharide (groups A, C, Y and W-135) diphtheria toxoid conjugate vaccine (MCV4P) Rene Baker MD Work Phone: [facility] 09-24-2015 meningococcal polysaccharide (groups A, C, Y and W-135) diphtheria toxoid conjugate vaccine (MCV4P) Rene Baker MD Work Phone: [facility] 11-28-2014 influenza virus vacc ine, unspecified formulation Rene Baker MD Work Phone: [facility] 11-28-2014 influenza, seasonal, injectable, preservative free Emeka Older RUBBER OFF.REGISTERED TRAVEL NURSE Work Phone: [facility] 02-05-2014 influenza virus vacc ine, live, attenuated, for intranasal use Emeka Older RUBBER OFF.REGISTERED TRAVEL NURSE Work Phone: [facility] 02-05-2014 influenza, live, intranasal, quadrivalent Rene Baker MD Work Phone: [facility] 12-01-2013 tetanus toxoid, redu caridad diphtheria toxoid, and acellular pertussis vaccine, adsorbed Rene Baker MD Work Phone: [facility] 04-07-2013 influenza virus vacc ine, unspecified formulation Rene Baker MD Work Phone: [facility] 11-29-2006 diphtheria, tetanus toxoids and acellular pertussis vaccine Rene Baker MD Work Phone: [facility] 11-29-2006 diphtheria, tetanus toxoids and pertussis vaccine Emeka Older RUBBER OFF.REGISTERED TRAVEL NURSE Work Phone: [facility] 11-29-2006 measles, mumps and rubella virus vaccine Rene Baker MD Work Phone: [facility] 11-29-2006 measles, mumps, rube lla, and varicella virus vaccine Rene Baker MD Work Phone: [facility] 11-29-2006 poliovirus vaccine, inactivated Rene Baker MD Work Phone: [facility] 10-28-2006 varicella virus vaccine Rene Baker MD Work Phone: [facility] 01-04-2002 diphtheria, tetanus toxoids and acellular pertussis vaccine Rene Baker MD Work Phone: [facility] 01-04-2002 diphtheria, tetanus toxoids and acellular pertussis vaccine, unspecified formulation Emeka Older RUBBER OFF.REGISTERED TRAVEL NURSE Work Phone: [facility] 01-04-2002 haemophilus influenz ae type b vaccine, conjugate unspecified formulation Emeka Older RUBBER OFF.REGISTERED TRAVEL NURSE Work Phone: [facility] 01-04-2002 haemophilus influenz ae type b vaccine, HbOC conjugate Rene Baker MD Work Phone: [facility] 10-28-2001 measles, mumps and rubella virus vaccine Rene Baker MD Work Phone: [facility] 10-28-2001 varicella virus vaccine Emeka Older RUBBER OFF.REGISTERED TRAVEL NURSE Work Phone: [facility] 06-23-2001 diphtheria, tetanus toxoids and acellular pertussis vaccine Rene Baker MD Work Phone: [facility] 06-23-2001 diphtheria, tetanus toxoids and acellular pertussis vaccine, unspecified formulation Emeka Older RUBBER OFF.REGISTERED TRAVEL NURSE Work Phone: [facility] 06-23-2001 haemophilus influenz ae type b vaccine, conjugate unspecified formulation Emeka Older RUBBER OFF.REGISTERED TRAVEL NURSE Work Phone: [facility] 06-23-2001 haemophilus influenz ae type b vaccine, HbOC conjugate Rene Baker MD Work Phone: [facility] 04-14-2001 diphtheria, tetanus toxoids and acellular pertussis vaccine Rene Baker MD Work Phone: [facility] 04-14-2001 diphtheria, tetanus toxoids and acellular pertussis vaccine, unspecified formulation Emeka Older RUBBER OFF.REGISTERED TRAVEL NURSE Work Phone: [facility] 04-14-2001 haemophilus influenz ae type b conjugate and Hepatitis B vaccine Emeka Older RUBBER OFF.REGISTERED TRAVEL NURSE Work Phone: [facility] 04-14-2001 haemophilus influenz ae type b vaccine, HbOC conjugate Rene Baker MD Work Phone: [facility] 04-14-2001 hepatitis B vaccine, pediatric or pediatric/adolescent dosage Rene Baker MD Work Phone: [facility] 04-14-2001 poliovirus vaccine, inactivated Rene Baker MD Work Phone: [facility] 02-02-2001 diphtheria, tetanus toxoids and acellular pertussis vaccine Rene Baker MD Work Phone: [facility] 02-02-2001 diphtheria, tetanus toxoids and acellular pertussis vaccine, unspecified formulation Emeka Older RUBBER OFF.REGISTERED TRAVEL NURSE Work Phone: [facility] 02-02-2001 poliovirus vaccine, inactivated Rene Baker MD Work Phone: [facility] 01-23-2001 diphtheria, tetanus toxoids and acellular pertussis vaccine Rene Baker MD Work Phone: [facility] 01-23-2001 diphtheria, tetanus toxoids and pertussis vaccine Emeka Older RUBBER OFF.REGISTERED TRAVEL NURSE Work Phone: [facility] 01-23-2001 poliovirus vaccine, inactivated Rene Baker MD Work Phone: [facility] 2000 haemophilus influenz ae type b conjugate and Hepatitis B vaccine Emeka Older RUBBER OFF.REGISTERED TRAVEL NURSE Work Phone: [facility] 2000 haemophilus influenz ae type b vaccine, HbOC conjugate Rene Baker MD Work Phone: [facility] 2000 hepatitis B vaccine, pediatric or pediatric/adolescent dosage Rene Baker MD Work Phone: [facility] 2000 poliovirus vaccine, inactivated Rene Baker MD Work Phone: [facility] 2000 hepatitis B vaccine, pediatric or pediatric/adolescent dosage Rene Baker MD Work Phone: [facility] Payers Date Payer Category Payer Medicaid [id number] 2020 Medicaid [facility] MEDICAID COUNTS INCLUDE 234 BEDS AT THE [facility] MEDICAID [id number] 2020-Present [phone] [address] [place] [address] Medicaid [id number] 2020 Medicaid [id number] Social History Date Type Detail Facility Start: 04-05-2018 End: 08-12-2022 Tobacco smoking status NHIS Never smoked tobacco [facility] Start: 03-19-2021 Alcohol intake Not Asked Ingrid alanis [facility] Start: 2000 Sex Assigned At Not on file C [facility] Start: 04-05-2018 End: 08-12-2022 Tobacco use and exposure Smokeless tobacco non-user [facility] Start: 08-12-2022 Alcohol intake Lifetime non-d diana (finding) [facility] Start: 08-12-2022 End: 12-15-2022 History of Social function [facility] Work Phone: Start: 08-12-2022 End: 12-15-2022 Tobacco use panel [facility] Work Phone: Adult Depression Screening Assessment 0 [facility] Work Phone: Clinical Notes 07-07-2007 to 03-30-2023 [...] Number: [facility] Number: [phone] Generic/ brand: 30 or 90 day supply requested: 90 Last appointment: 11/19/20 Next Appointment: none; sent to schedulers Patient of Dr. Baker documented in this encounter [facility] 01-28-2023 Miscellaneous Notes Bernice mother called back informed that pt will be transferring to [facility] and wont be making an appointment here. Refill for OXC done on 01/01/23. Called [facility] and Mrs. Flores to advise of need for appt, did not receive answer on either line, messages left, will await call-back. Refill refused. Lucita Siu RN Prescription Refill: Requested by: pharmacy Please E-Scribe Caller Contact Number: [facility] Number: [phone] Generic/ brand: Generic 30 or 90 day supply requested: 90 Last appointment: 11/19/20 Next Appointment: none Patient of Dr. Baker documented in this encounter [facility] 12-28-2022 Miscellaneous Notes Noted Lexus has not been seen since 11/2020. Called Mrs. Flores to advises of a need for a clinic visit with Dr. Baker. Did not receive an answer. Will await call-back. -Prescription appropriate. Please file, document electronically, and CLOSE encounter. Thank you. -Routed to Dr. Baker. Nadeem Artis RN Prescription Refill: Requested by: pharmacy Please E-Scribe Caller Contact Number: [phone] (home) [facility] Number: [phone] Generic/ brand: generic 30 or 90 day supply requested: 90 Last appointment: 11/19/20 Next Appointment: Patient was ns for 12/15/[address] baker documented in this encounter [facility] 10-21-2022 Miscellaneous Notes Date of service: October [...] by: pharmacy Please E-Scribe Caller Contact Number: [phone] (home) [facility] Number: [phone] Generic/ brand: generic 30 or 90 day supply requested: 90 Last appointment: 11/19/20 Next Appointment: 12/15/[address] baker documented in this encounter [facility] 08-12-2022 Note HNO ID: [id number] Author: Emeka Alicia APRN.REGISTERED TRAVEL NURSE Service: ? Author Type: Nurse Practitioner Type: [...] diet of 1000 mg/day for under 50, 3257-9198 mg/day for 50+ - Patient was counseled [id number] by myself (the billing provider) for the [...] occur. Patient agreeable to treatment plan. Emeka Alicia, RUBBER OFF.REGISTERED TRAVEL NURSE [facility] 08-12-2022 History of Present illness Narrative [...] diet of 1000 mg/day for under 50, 0742-7751 mg/day for 50+ - Patient was counseled [id number] by myself (the billing provider) for the [...] Emeka Alicia APRN.CNP documented in this encounter [facility] 07-20-2022 Miscellaneous Notes Date of service: July [...] by: pharmacy Please E-Scribe Caller Contact Number: [phone] (home) [facility] Number: [phone] Generic/ brand: generic 30 or 90 day supply requested: 90 Last appointment: 11/19/20 Next Appointment: none Patient of Dr. baker documented in this encounter [facility] 04-01-2022 Miscellaneous Notes Mom returned call; will [...] Last seen by Dr. Baker on 11/19/20. [employer] message sent requesting family to schedule follow-up. Called Ms. Flores to advise of need to schedule follow-up appt, did not receive answer. Message left, will await call-back. Now requesting oxcarbazepine refill Level of oxcarbazepine on 11/28/20 was 20.1 -Prescription appropriate, please file and document electronically. Thank you. -Routed to Dr. Maribell Siu RN Prescription Refill: Requested by: pharmacy Please Fax Caller Contact Number: [phone] (home) Pharmacy Name: [facility] Number: [phone] Generic/ brand: generic 30 or 90 day supply requested: 90 Last appointment: 11/19/20 Next Appointment: none Patient of Dr. baker documented in this encounter [facility] 01-06-2022 Miscellaneous Notes Oxcarbazepine refill done on 01/01/22, refill refused. Lucita Siu RN Prescription Refill: Requested by: pharmacy Please E-Scribe Caller Contact Number: Pharmacy Name: [facility] Number: [phone] Generic/ brand: 30 or 90 day supply requested: 90 Last appointment: 11/19/20 Next Appointment: needs apt Patient of Dr. Baker documented in this encounter [facility] 01-01-2022 Miscellaneous Notes Spoke with patient's mother. Given message from provider's office. Patient's mother verbalizes understanding. Mother will call NEUROLOGY to schedule. Carlene Garcia RN message left for parent to call office Aryan Cummings RN Please help the patient with the requested referral. It has been placed into the computer. This note was partially generated using [employer] voice recognition system, and there may be [...] Aryan Cummings RN documented in this encounter [facility] 01-01-2022 Miscellaneous Notes The following approved medication [...] parent Please E-Scribe Caller Contact Number: Casi [phone] [facility] Number: [phone] Generic/ brand: generic 30 or 90 day supply requested: 90 Last appointment: 11/19/20 Next Appointment: Mrs. Flores is trying to establish care with neurologist in [facility]. Patient of Dr. Baker documented in this encounter [facility] 01-01-2022 Miscellaneous Notes Spoke with Mrs. Flores who will obtain referral for new neurologist from PCP. Lucita Siu RN General call : Full name of person calling: Ellen Flores Relationship to patient: mother Phone # : [phone] Reason for call: Mrs. Flores requests a referral to [facility]. Even though they are related, in order to transfer care to adults, [place] is requiring a referral. Please send it to Derick Saleem MD phone [phone]. Mrs. Flores did not have the fax. Please send pertinent records. Patient of Dr. Baker documented in this encounter [facility] 10-06-2021 Miscellaneous Notes Patient's request for medication [...] Caller Contact Number: Pharmacy Number and Name: [phone] [id number] 30 or 90 day supply requested: 90 Last appointment: 11/19/20 Next Appointment: none Patient of Dr. Baker documented in this encounter [facility] 07-10-2021 Miscellaneous Notes The following approved medication [...] E-Scribe Caller Contact Number: [facility]: [facility] Number: [phone] Generic/ brand: 30 or 90 day supply requested: 90 Last appointment: 11.19.2020 Next Appointment: None Patient of Dr. Baker documented in this encounter [facility] documented as of this encounter (statuses as of 08/13/2022) [facility]09[facility] History of Past illness Narrative* Problem Noted Date Resolved Date Swelling of limb 12/25/2014 08/12/2022 Vertigo 08/23/2011 08/12/2022 Epilepsy 07/07/2007 04/05/2018 Benign neoplasm of scalp and skin of neck 200308/12/2022 documented as of this encounter (statuses as of 10/22/2022) [facility] History of Past illness Narrative* Problem Noted Date Diagnosed Date Resolved Date Swelling of limb 12/25/2014 08/12/2022 Vertigo 08/23/2011 08/12/2022 Epilepsy 07/07/2007 04/05/2018 Benign neoplasm of scalp and skin of neck 11/01/2003 08/12/2022 documented as of this encounter (statuses as of 01/01/2023) [facility] History of Past illness Narrative* Problem Noted Date Diagnosed Date Resolved Date Swelling of limb 12/25/2014 08/12/2022 Vertigo 08/23/2011 08/12/2022 Epilepsy 07/07/2007 04/05/2018 Benign neoplasm of scalp and skin of neck 11/01/2003 08/12/2022 documented as of this encounter (statuses as of 01/28/2023) [facility] History of Past illness Narrative* Problem Noted Date Diagnosed Date Resolved Date Swelling of limb 12/25/2014 08/12/2022 Vertigo 08/23/2011 08/12/2022 Epilepsy 07/07/2007 04/05/2018 Benign neoplasm of scalp and skin of neck 11/01/2003 08/12/2022 documented as of this encounter (statuses as of 03/30/2023) [facility] History of Past illness Narrative* Problem Noted Date Resolved Date Epilepsy 07/07/2007 04/05/2018 documented as of this encounter (statuses as of 07/11/2021) [facility] History of Past illness Narrative* Problem Noted Date Resolved Date Epilepsy 07/07/2007 04/05/2018 documented as of this encounter (statuses as of 10/06/2021) [address]20-2008 History of Past illness Narrative* Problem Noted Date Resolved Date Epilepsy 07/07/2007 04/05/2018 documented as of this encounter (statuses as of 01/01/2022) [facility] History of Past illness Narrative* Problem Noted Date Resolved Date Epilepsy 07/07/2007 04/05/2018 documented as of this encounter (statuses as of 01/01/2022) [facility] History of Past illness Narrative* Problem Noted Date Resolved Date Epilepsy 07/07/2007 04/05/2018 documented as of this encounter (statuses as of 01/01/2022) [facility] History of Past illness Narrative* Problem Noted Date Resolved Date Epilepsy 07/07/2007 04/05/2018 documented as of this encounter (statuses as of 01/06/2022) [facility] History of Past illness Narrative* Problem Noted Date Resolved Date Epilepsy 07/07/2007 04/05/2018 documented as of this encounter (statuses as of 04/01/2022) [facility] History of Past illness Narrative* Problem Noted Date Resolved Date Epilepsy 07/07/2007 04/05/2018 documented as of this encounter (statuses as of 07/21/2022) [facility] Partial epilepsy with intractable epilepsy (HCC) Localization-related (focal) (partial) epilepsy and epileptic syndromes with simple partial seizures, with intractable epilepsy [facility] Diagnosis Partial epilepsy with intractable epilepsy (HCC) Localization-related (focal) (partial) epilepsy and epileptic syndromes with simple partial seizures, with intractable epilepsy [facility] with intractable epilepsy (HCC)- Primary Localization-related (focal) (partial) epilepsy and epileptic syndromes with simple partial seizures, with intractable epilepsy [facility] Partial epilepsy with intractable epilepsy (HCC) Localization-related (focal) (partial) epilepsy and epileptic syndromes with simple partial seizures, with intractable epilepsy [facility] 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, 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) Localization-related (focal) (partial) epilepsy and epileptic syndromes with simple partial seizures, with intractable epilepsy [facility] Diagnosis Partial epilepsy with intractable epilepsy (HCC) Localization-related (focal) (partial) epilepsy and epileptic syndromes with simple partial seizures, with intractable epilepsy [facility] Diagnosis Partial epilepsy with intractable epilepsy (HCC) Localization-related (focal) (partial) epilepsy and epileptic syndromes with simple partial seizures, with intractable epilepsy documented in this encounter [facility]* Diagnosis Partial epilepsy with intractable epilepsy (HCC) Localization-related (focal) (partial) epilepsy and epileptic syndromes with simple partial seizures, with intractable epilepsy [facility] Diagnosis Partial epilepsy with intractable epilepsy (HCC) Localization-related (focal) (partial) epilepsy and epileptic syndromes with simple partial seizures, with intractable epilepsy documented in this encounter [facility] Advance Directives Documents on File Type Date Recorded 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 Advance Directive(s) Latest Code Status [...] epilepsy (HCC) Procedures CONSULT TO NEUROLOGY OFFICE/OUTPATIENT [facility] 60-74 MINUTES Renard Eden MD [address] [place] [address] Referral ID Status Reason Start Date Expiration Date Visits Requested Visits Authorized [id number] Authorized PCP Requested Referral 01/01/2022 01/01/2023 1 [...] or prosecute any alcohol or drug abuse patient.[facility] the event this information is protected by the Federal Confidentiality of Alcohol and Drug Abuse Patient Records regulations: The Federal rules restrict any use of the information to criminally investigate or prosecute any alcohol or drug abuse patient.[facility] the event this information is protected by the Federal Confidentiality of Alcohol and Drug Abuse Patient Records regulations: The Federal rules restrict any use of the information to criminally investigate or prosecute any alcohol or drug abuse patient.[facility] the event this information is protected by the Federal Confidentiality of Alcohol and Drug Abuse Patient Records regulations: The Federal rules restrict any use of the information to criminally investigate or prosecute any alcohol or drug abuse patient.[facility] the event this information is protected by the Federal Confidentiality of Alcohol and Drug Abuse Patient Records regulations: The Federal rules restrict any use of the information to criminally investigate or prosecute any alcohol or drug abuse patient.[facility] the event this information is protected by the Federal Confidentiality of Alcohol and Drug Abuse Patient Records regulations: The Federal rules restrict any use of the information to criminally investigate or prosecute any alcohol or drug abuse patient.[facility] the event this information is protected by the Federal Confidentiality of Alcohol and Drug Abuse Patient Records regulations: The Federal rules restrict any use of the information to criminally investigate or prosecute any alcohol or drug abuse patient.[facility] the event this information is protected by the Federal Confidentiality of Alcohol and Drug Abuse Patient Records regulations: The Federal rules restrict any use of the information to criminally investigate or prosecute any alcohol or drug abuse patient.[facility] the event this information is protected by the Federal Confidentiality of Alcohol and Drug Abuse Patient Records regulations: The Federal rules restrict any use of the information to criminally investigate or prosecute any alcohol or drug abuse patient.[facility] the event this information is protected by the Federal Confidentiality of Alcohol and Drug Abuse Patient Records regulations: The Federal rules restrict any use of the information to criminally investigate or prosecute any alcohol or drug abuse patient.[facility] HospitalIn the event this information is protected by the Federal Confidentiality of Alcohol and Drug Abuse Patient Records regulations: The Federal rules restrict any use of the information to criminally investigate or prosecute any alcohol or drug abuse patient.[facility] HospitalIn the event this information is protected by the Federal Confidentiality of Alcohol and Drug Abuse Patient Records regulations: The Federal rules restrict any use of the information to criminally investigate or prosecute any alcohol or drug abuse patient.[facility] HospitalIn the event this information is protected by the Federal Confidentiality of Alcohol and Drug Abuse Patient Records regulations: The Federal rules restrict any use of the information to criminally investigate or prosecute any alcohol or drug abuse patient.[facility] Reason for Visit (unrecogniz ed section and content) Reason Onset Date Comments Refill Request 10/06/2021 Reason Comments Other Referral to [place] neurologist Reason Onset Date Comments Refill Request [...] Care Teams (unrecognized sec tion and content) Barrel Rifler Relationship Specialty Start Date End Date Renard Eden MD [facility] [place], [place] [id number] PCP - General Pediatrics 12/15/18 Barrel Rifler Relationship Specialty Start Date End Date Renard Eden MD [address] [place], [place] [id number] PCP - General Pediatrics 12/15/18 Barrel Rifler Relationship Specialty Start Date End Date Renard Eden MD [facility] [place], [place] [id number] PCP - General Pediatrics 12/15/18 Barrel Rifler Relationship Specialty Start Date End Date Renard Eden MD [facility] [place], [place] [id number] PCP - General Pediatrics 12/15/18 Barrel Rifler Relationship Specialty Start Date End Date Anhtony Hines MD [address] [place], [place] [id number] PCP - General Internal Medicine 08/12/22 Barrel Rifler Relationship Specialty Start Date End Date Anthony Hines MD [address] [place], [place] [id number] PCP - General Internal Medicine 08/12/22 Barrel Rifler Relationship Specialty Start Date End Date Anthony Hines MD [address] [place], [place] [id number] PCP - General Internal Medicine 08/12/22 INFORMATION [...] BE BASED ON THE PRIMARY CLINICAL RECORDS. [facility] [employer] [facility] provides no warranty or guarantee of the accuracy or completeness of information in this document.
== END | disposition home or self-care (01) ==
LOC: MRI 07:24
PROVIDERS: PCP Pediatrics; Referring Provider Psychiatry & Neurology Neurology; Visit Provider Psychiatry & Neurology Neurology
DX: G40.909 Epilepsy, unspecified, not intractable, without status epilepticus (principal)
CPT/HCPCS: 70553; A9575

== ENCOUNTER → 2023-07-23 | Outpatient (CLI) | payer MEDICAID, SELFPAY | END | disposition home or self-care (01) | PROVIDERS: PCP Pediatrics; Referring Provider Psychiatry & Neurology Neurology; Visit Provider Psychiatry & Neurology Neurology | DX: G40.909 Epilepsy, unspecified, not intractable, without status epilepticus (principal) | CPT/HCPCS: 95819 ==

== ENCOUNTER → 2024-01-13 | Outpatient (CLI) | payer MEDICAID, SELFPAY ==
[2024-01-13 10:33] LABS: Absolute Lymphocyte Count 2.07 X10^3/uL (0.83-4.51); Absolute Neutrophil Count 1.4 X10^3/uL (2.0-7.7); Basophil# 0.07 X10^3/uL; Basophil% 1.6 % (0-1); Hemoglobin 8.2 g/dL (12.0-15.0); Lymphocyte # 2.07 X10^3/ul (0.83-4.51); Lymphocyte % 48.5 % (19-41); Mean Corp Hgb Conc 27.3 g/dL (32-36); Mean Corpuscular Hgb 19.1 pg (27.0-32.0); Mean Corpuscular Volume 69.8 fL (81-99); Mean Platelet Vol. 8.9 fl (6.2-12.0); Monocyte# 0.45 X10^3/uL; Monocyte% 10.5 % (0-10); NRBC Flagged by Analyzer 0 % (0-5); Neutrophil # 1.37 X10^3/uL (2.7-7.7); Neutrophil % 32.2 % (47-70); Platelet Count 398 K/mm3 (150-450); RBC Distribution Width CV 18.2 % (11.6-14.6); RBC Distribution Width SD 45.4 fl (35.1-43.9); White Blood Count 4.3 K/mm3 (4.4-11.0)
[2024-01-13 10:53] LABS: AST(SGOT) 11 U/L (15-37); Alanine Aminotransfer ALT/SGPT 14 U/L (13-56); Albumin, Serum 3.7 g/dL (3.2-5.0); Alkaline Phosphatase 57 U/L (45-117); Anion Gap 3 (5-15); BUN 12 mg/dL (7-18); BUN/Creat Ratio 19.8 RATIO (10-20); Calcium,Total 9.1 mg/dL (8.5-10.1); Chloride 107 mmol/L (98-107); EST Glomerular Filtration Rate 130 mL/min (>60); Est Glom Filt Rate - Afr Amer 157 mL/min (>60); Ferritin 2 ng/mL (8-252); Globulin 3.7 g/dL (2.2-4.2); Glucose 95 mg/dL (74-106); Iron 18 ug/dL (50-170); Iron Binding Capacity,Total 396 ug/dL (250-450); Protein, Total 7.4 g/dL (6.4-8.2); Sodium Level 137 mmol/L (136-145)
[2024-01-17 15:08] LABS: Trileptal-Oxcarbazepine 14 ug/mL (10-35)
== END | disposition home or self-care (01) ==
PROVIDERS: PCP Pediatrics; Referring Provider Psychiatry & Neurology Neurology; Visit Provider Psychiatry & Neurology Neurology
DX: D64.9 Anemia, unspecified (principal); G40.909 Epilepsy, unspecified, not intractable, without status epilepticus; Z86.2 Personal history of diseases of the blood and blood-forming organs and certain disorders involving the immune mechanism
CPT/HCPCS: 36415; 80053; 82542; 82728; 83540; 83550; 85025

== ENCOUNTER → 2024-08-10 | Outpatient (CLI) | payer MEDICARE, MEDICAID, SELFPAY ==
[2024-08-10 16:00] LABS: Absolute Lymphocyte Count 2.03 X10^3/uL (0.83-4.51); Absolute Neutrophil Count 2.5 X10^3/uL (2.0-7.7); Basophil# 0.08 X10^3/uL; Basophil% 1.5 % (0-1); Eosinophil# 0.24 X10^3/uL; Eosinophils% 4.5 % (0-5); Hematocrit 37.3 % (37-47); Hemoglobin 11.5 g/dL (12.0-15.0); Lymphocyte # 2.03 X10^3/ul (0.83-4.51); Lymphocyte % 38.4 % (19-41); Mean Corp Hgb Conc 30.8 g/dL (32-36); Mean Corpuscular Hgb 24.5 pg (27.0-32.0); Mean Corpuscular Volume 79.4 fL (81-99); Mean Platelet Vol. 9.1 fl (6.2-12.0); Monocyte# 0.45 X10^3/uL; Monocyte% 8.5 % (0-10); NRBC Flagged by Analyzer 0 % (0-5); Neutrophil # 2.48 X10^3/uL (2.7-7.7); Neutrophil % 46.9 % (47-70); POSITIVE MORPHOLOGY YES; Platelet Count 260 K/mm3 (150-450); White Blood Count 5.3 K/mm3 (4.4-11.0)
[2024-08-10 16:13] LABS: Differential Indicated SCAN CRITERIA MET
[2024-08-10 16:42] LABS: ALB/GLOB Ratio 1.5 RATIO (0.9-2.4); AST(SGOT) 16 U/L (<=31); Alanine Aminotransfer ALT/SGPT 10 U/L (<=34); Albumin, Serum 4.4 g/dL (3.5-5.0); Alkaline Phosphatase 58 U/L (35-104); Anion Gap 11 (5-15); BUN 9 mg/dL (4-19); BUN/Creat Ratio 17.4 RATIO (10-20); Calcium,Total 9.6 mg/dL (7.6-11.0); Carbon Dioxide 21.9 mmol/L (21.0-32.0); Chloride 104 mmol/L (98-108); Creatinine, Serum 0.53 mg/dL (0.70-1.20); EST Glomerular Filtration Rate 133 (>60); Globulin 2.9 g/dL (2.2-4.2); Glucose 96 mg/dL (70-99); Iron 74 ug/dL (50-170); Potassium 3.8 mmol/L (3.3-5.1); Protein, Total 7.2 g/dL (5.9-8.4); Sodium Level 137 mmol/L (133-145); Total Bilirubin 0.25 mg/dL (0.00-1.30)
[2024-08-10 17:10] LABS: Ferritin 26 ng/mL (22-378); Vitamin B12 2573 pg/mL (180-914)
[2024-08-10 17:43] LABS: Anisocytosis 2+
[2024-08-10 17:45] LABS: Platelet Estimate ADEQUATE (ADEQ)
== END | disposition home or self-care (01) ==
LOC: MTLAB 13:10
PROVIDERS: Referring Provider Psychiatry & Neurology Neurology; Visit Provider Psychiatry & Neurology Neurology
DX: G40.909 Epilepsy, unspecified, not intractable, without status epilepticus (principal); D64.9 Anemia, unspecified
CPT/HCPCS: 36415; 80053; 82542; 82607; 82728; 83540; 85025